=== PATIENT | female | born 1950 | race Caucasian/White ===

== ENCOUNTER 2017-03-04 10:08 | Emergency (ER) | payer OTHER ==
[~2017-03-04] VITALS: Ht 170.2 cm; Wt 56.7 kg
[2017-03-04] MEDS ORDERED: VENTOLIN HFA18 GM INH (10:26)
[2017-03-04] MEDS ORDERED: OMEPRAZOLE20 MG PO (10:26)
[2017-03-04] MEDS ORDERED: PROPRANOLOL HCL20 MG PO (10:27)
[2017-03-04] MEDS ORDERED: ADVAIR 250-501 EACH INH (10:28)
[2017-03-04] MEDS ORDERED: SPIRIVA18 MCG INH (10:29)
--- OUTSIDE RECORDS SUMMARY | 2017-03-04 10:32 | XMS ---
Demographics + + + | Address | [address] | | | [address] | | | [place] [id number] | + + + | Preferred Language | Unknown | + + + | Marital Status | Unknown | + + + | Latter-Day Affiliation | Unknown | + + + | Race | Unknown | + + + | Ethnic Group | Unknown | + + + Author + + + | Author | [facility] | + + + | Organization | [facility] | + + + | Address | [address] | | | [place] [address] | + + + | Phone | | + + + Care Team Providers + + + + | Care 7Th Grade Social Studies Teacher Name | Role | Phone | + + + + Unavailable | Unavailable | + + + + PROBLEMS +---------+ + + +--------+ + + | Type | Condition | ICD9-CM | [id number] | Onset | Condition | SNOMED | | | | Code | Code | Dates | Status | Code | +---------+ + + +--------+ + + | Problem | Essential | | I10 | | Active | [id number] | | | (primary) | | | | | | | | hypertensi | | | | | | | | on | | | | | | +---------+ + + +--------+ + + ALLERGIES + + + + +--------+ | Substance | Reaction | Event Type | Date | Status | + + + + +--------+ | Aspirin | Unknown | Drug Allergy | Nov, | Active | + + + + +--------+ SOCIAL HISTORY Never Assessed PLAN OF CARE + +---------+ | Activity | Details | + +---------+ +---+ | | +---+ + + + | Follow Up | 3 Months Reason:null | + + + | Pending Test | CT Scan: Lungs W/Out Contrast | + + + VITAL SIGNS + + + + | Height | 64 in | 2016-11-10 | + + + + | Weight | 123.0 lbs | 2016-11-10 | + + + + | BMI | 21.11 kg/m2 | 2016-11-10 | + + + + | Temperature | 98.6 degrees Fahrenheit | 2016-11-10 | + + + + | Heart Rate | 74 /min | 2016-11-10 | + + + + | Blood pressure systolic | 139 mm Hg | 2016-11-10 | + + + + | Blood pressure diastolic | 69 mm Hg | 2016-11-10 | + + + + MEDICATIONS + + + + + + + +--------+ | Medicati | Instruct | Dosage | Frequenc | Start | End Date | Duration | Status | | on | ions | | y | Date | | | | + + + + + + + +--------+ | Lisinopr | Orally | 1 tablet | 24h | | | | Active | | il 20 MG | Once a | | | | | | | | | day | | | | | | | + + + + + + + +--------+ | Omeprazo | Orally | 1 | 24h | | | 30 | Active | | le 20 MG | Once a | capsule | | | | | | | | day | | | | | | | + + + + + + + +--------+ | Ventolin | Inhalati | 2 puffs | 4h | | | 30 | Active | | HFA 108 | on every | as | | | | | | | (90 | 4 hrs | needed | | | | | | | Base) | | | | | | | | | MCG/ACT | | | | | | | | + + + + + + + +--------+ | Spiriva | Inhalati | i cap | | | | 30 | Active | | HandiHal | on q day | | | | | | | | er 18 | | | | | | | | | MCG | | | | | | | | + + + + + + + +--------+ | Hyzaar | Orally | 1 tablet | 24h | 30 Mar, | | 30 | Active | | 50-12.5 | Once a | | | 2017 | | day(s) | | | MG | day | | | | | | | + + + + + + + +--------+ RESULTS No Results PROCEDURES No Known procedures IMMUNIZATIONS No Known Immunizations MEDICAL (GENERAL) HISTORY + + +------+ | Type | Description | Date | + + +------+ | Surgical History | brain surgery | 1983 | + + +------+ | Surgical History | back surgery | | + + +------+"
[2017-03-04] MEDS ORDERED: PREDNISONE20 MG PO (11:47)
[2017-03-04] MEDS ORDERED: LEVAQUIN750 MG PO (11:47)
[2017-03-05] MEDS ORDERED: HYZAAR 50-12.51 EACH PO (00:01)
[2017-03-05] MEDS ORDERED: PREDNISONE20 MG PO (00:04)
--- NOTE | 2017-03-06 06:43 | EKG ---
[facility] [address] [place], [place] [address] Signed Sinus tachycardia Possible Anterolateral infarct , age undetermined Abnormal ECG No previous ECGs available Confirmed by ILDA CAMACHO MD ([id number]) on 03/06/2017 6:43:41 AM Electronically Signed By: ILDA CAMACHO MD 03/06/17 0643 PATIENT NAME: GORDO ROLLINS Electrocardiogram DATE OF : 54 PHYSICIAN: ILDA CAMACHO MD REPORT #: [id number] REPORT IS CONFIDENTIAL AND NOT TO BE RELEASED WITHOUT AUTHORIZATION
== END 2017-03-04 12:36 | disposition home or self-care (01) ==
LOC: ED 10:08
DX: J44.1 Chronic obstructive pulmonary disease with (acute) exacerbation (principal); Z88.2 Allergy status to sulfonamides; Z88.8 Allergy status to other drugs, medicaments and biological substances; Z79.899 Other long term (current) drug therapy
CPT/HCPCS: 71010; 80053; 83735; 84484; 85025; 87502; 93005; 93010; 94640; 96365; 96375; 99284; J1956; J2930; J7030

== ENCOUNTER 2017-03-04 23:48 | Inpatient (IN) | payer OTHER ==
[~2017-03-04] VITALS: Ht 170.2 cm; Wt 55.8 kg
[~2017-03-04 23:48] MED LIST: ADVAIR 250-501 EACH INH; LEVAQUIN750 MG PO; OMEPRAZOLE20 MG PO; PREDNISONE20 MG PO; PROPRANOLOL HCL20 MG PO; SPIRIVA18 MCG INH; VENTOLIN HFA18 GM INH
[2017-03-05] MEDS ORDERED: HYZAAR 50-12.51 EACH PO (00:01)
[2017-03-05] MEDS ORDERED: PREDNISONE20 MG PO (00:04)
--- NOTE | 2017-03-05 01:30 | NUR ---
PT ARRIVES TO ICU ROOM 130, UP TO BSC TO VOID THEN TO BED PER SELF, STEADY ON FEET. O2/2L/NC IN PLACE, HR 120'S WHILE UP. PT IS ALERT AND ORIENTED X4, C/O SOME NECK PAIN, STATES SHE FEELS "A LITTLE" SOB, "BUT IM GETTING BETTER". RR 20'S WHILE UP, SPO2 95%, SLIGHTLY LABORED WITH ACTIVITY. DAUGHTER IN ROOM, WILL STAY THE NIGHT.
--- NOTE | 2017-03-05 03:06 | NUR ---
PT RESTING IN BED, DOES NOT SEEM TO BE SLEEPING WELL, RR 24, SPO2 98% ON 2L/NC, RESP UNLABORED AT THIS TIME, HR 112. WAS GIVEN HER DOSE OF SOLUMEDROL AROUND 0145.
--- NOTE | 2017-03-05 04:16 | NUR ---
RT IN TO CHECK ON PT AND DO NEB TX. ASSESSMENT DONE, PT VERY TALKATIVE AND RESTLESS. LUNGS VERY DIM THROUGHOUT.
--- NOTE | 2017-03-05 05:30 | NUR ---
PT AWAKE IN BED, TRYING TO SLEEP, STATES HER SOB IS DECREASING ALTHOUGH BREATHING LOOKS LABORED, HR 115 AT REST. WEARING 2L/NC WITH SPO2 97% AND RR 24.
--- NOTE | 2017-03-05 07:07 | NUR ---
PT UP TO BSC THEN BACK TO BED.
--- NOTE | 2017-03-05 08:22 | NUR ---
ASSESSMENT COMPLETED, LUNGS DIM THROUGHOUT. PT SOB WITH SATS 84-88%. DR. LONGORIA IN TO ASSESS PT. PRN NEB TX GIVEN AND PT PLACED ON OXYMASK AT 3L THEN DECREASED TO 2L AND SATS NOW 96%.
--- NOTE | 2017-03-05 08:25 | NUR ---
PATIENT WHITEBOARD UPDATED, ROOM TIDIED. TOOK PATIENT TO BSC, 1PA. VOIDED 300ML. SATURATION WENT DOWN TO 85% WHILE ON 2L OM. NURSE NOTIFIED.
--- NOTE | 2017-03-05 09:17 | NUR ---
PATIENT CALLED BECAUSE SHE WAS COLD. TURNED HEAT UP IN ROOM. OFFERED TO COVER HER UP WITH BLANKET, SHE DECLINED. ALSO STATED SHE DID NOT LIKE YOGURT BECAUSE IT WAS SOUR, SHE WANTED TO KEEP TRAY IN ROOM. DECLINED ME ORDERING HER ANYTHING ELSE.
--- NOTE | 2017-03-05 09:26 | NUR ---
A.M. MEDS GIVEN AND PT ANXIOUS, STATES "I NEED SOMETHING TO BRING MED DOWN SO I CAN SLEEP". LIGHTS DIM IN ROOM AND PT REMAINS ON OXYMASK AT 2L, SATS 97%.
--- NOTE | 2017-03-05 09:43 | NUR ---
TOOK PATIENT TO BSC, SBA. VOIDED 600ML. DESAT TO 84% ON 2L OM (RN AND MD NOTIFIED).
--- NOTE | 2017-03-05 11:34 | NUR ---
PT UP TO BSC, VERY SOB, RETURNED TO BED WITH OXYMASK ON AND 02 INCREASED TO 4L, SATS 97%.
--- NOTE | 2017-03-05 12:58 | NUR ---
DAUGHTER HERE VISITING WITH PT. STATES "MY MOM SAYS HER STOMACH HURTS". CHECKED PT AND REMINDED HER SHE HAD PROTONX THIS MORNING. PT STATES FEELING NAUSEATED, MEDICATED WITH ZOFRAN 4MG IV. ASSESSMENT COMPLETED, SATS 97% ON 2L PER NC.
--- NOTE | 2017-03-05 13:17 | NUR ---
UP TO BSC WITH ONE PERSON ASSIST. VOIDED 450 MLS CLEAR YELLOW URINE. RETURNED TO BED WITH HOB ELEVATED. SATS 95% ON 2L PER NC.
--- NOTE | 2017-03-05 14:52 | NUR ---
GOT PATIENT UP TO BEDSIDE COMMODE. PATIENT VOIDED 400ML. PATIENT PERFORMED OWN [place] CARE. GOT PATIENT BACK TO BED. DESAT TO 78%, NURSE NOTIFIED.
--- NOTE | 2017-03-05 15:54 | NUR ---
RT IN AND TAUGHT PT TO US ACAYOCASTALLA. PT TRIPP WELL.
--- NOTE | 2017-03-05 16:02 | NUR ---
ASSESSMENT COMPLETED, STATES NECK DISCOMFORT "5/10". PT RESTING IN BED. WARM BLANKET GIVEN FOR NECK PAIN.
--- NOTE | 2017-03-05 18:33 | NUR ---
PT RESTING IN BED, WATCHING TV. EATING A CHEESE STICK. DENIES NEED FOR ANY OTHER FOOD AT THIS TIME.
--- NOTE | 2017-03-05 19:20 | NUR ---
UP TO BSC WITH ONE PERSON ASSIST. PT VOIDED 500 MLS CLEAR YELLOW URINE, RETURNED TO BED AND WARM BLANKET GIVEN PER PT REQUEST.
--- NOTE | 2017-03-05 19:30 | NUR ---
PT SHIFT REPORT RECIVED FROM NELI RN. ALL QUESTIONS ANSWERED. PT RESTING IN BED AT THIS TIME. PT USES CALL LIGHT. WILL CONTINUE TO MONITOR.
--- NOTE | 2017-03-05 20:15 | NUR ---
PT REQUESTING SOMETHING TO HELP HER SLEEP. CALLED MD TO UPDATE. MD WILL UPDATE PT MAY. NO OTHER ISSUES AT THIS TIME.
--- NOTE | 2017-03-05 21:47 | NUR ---
PT RESTING IN BED AT THIS TIME. BED ALARM ON FOR PT SAFETY. WILL CONTINUE TO MONITOR.
--- NOTE | 2017-03-05 23:00 | NUR ---
PT RESTING WELL AT THIS ITME. PT SPO2 98% ON 2L OXYMASK. PT RR 26-34. WILL CONTINUE TO CLOSELY MONITOR. NO OTHER ISSUES AT THIS TIME.
--- NOTE | 2017-03-06 01:15 | NUR ---
PT WOKE TO USE CAMMODE. PT TOLERATED WELL. GAVE PT NEB AFTER SHE WAS BACK TO BED. PT BREATH SOUNDS REMAIN DIMINISHED. WILL CONTINUE TO CLOSELY MONITOR. HR IMPROVED WHEN PT IS RESTING TO 94-100. WHEN PT IS AWAKE HR IS 105-120.
--- NOTE | 2017-03-06 03:00 | NUR ---
PT RESTING WELL AT THIS TIME. BED ALARM ON FOR PATIENT SAFETY. PT HAS CALLED FOR ASSITANCE NEEDED. PT HR 80-95 WHILE ASLEEP. WHEN PT AWAKENS HR 105-120. PT RR HAS IMPROVED WITH RATE 22-26 WHILE AT REST. PT CONTINUES TO WEAR OXYMASK AT 2L AND INCREASED TO 4L WITH AMBULATION. WILL CONTINUE TO MONITOR.
--- NOTE | 2017-03-06 06:00 | NUR ---
PT UP TO CAMMODE. PT DESATS WITH ACTIVITY. TURN OXYMASK UP TO 4L TO HELP PREVENT DESATING. RT IN TO SEE PT WHILE PT IS AWAKE. NEB GIVEN D/T PT BEING ASLEEP EARLIER. NO OTHER ISSUES AT THIS TIME. WILL CONTINUE TO MONITOR.
--- NOTE | 2017-03-06 07:54 | NUR ---
PT WAS OFFERED A SHOWER/BED BATH, WARM WASH CLOTH, AND ORAL CARE. PT REFUSED ALL. WILL NOTIFY RN. PT IS BACK IN BED. COMMODE EMPTIED. FRESH ICE WATER AND WARM BLANKET GIVEN. CALL LIGHT IN REACH.
--- NOTE | 2017-03-06 08:23 | NUR ---
PT UP TO BSC WITH ONE PERSON ASSIST - PT HAD SMALL SOFT BROWN BM AND TRANSFERRED TO ADONIS CHAIR USING WALKER AND ONE PERSON ASSIST. ASSESSMENT COMPLETED - DENIES DISCOMFORT AT THIS TIME BUT STATES "I'M TIRED TODAY".
--- NOTE | 2017-03-06 08:39 | NUR ---
PT'S O2 SATS WENT DOWN TO 77. RAISED O2 VIA OXYMASK FOR TWO MINUTES AND TURNED IT BACK DOWN TO 3L ONCE O2 LEVELS WERE BACK UP. RN NOTIFIED.
--- NOTE | 2017-03-06 09:54 | NUR ---
PT AWAKE AND UP WITH ONE PERSON ASSIST. PHYSICAL THERAPY HERE AND AMBULATED IN HALLWAY ON 02. PT TRIPP WELL WITH SOME SHORTNESS OF BREATH BUT PT WAS ABLE TO RECOVER. SATS 94% ON 2L PER NC. ASSESSMENT COMPLETED, LUNGS DIM WITH FEW WHEEZES IN LEFT LOWER BASE. REPORT GIVEN TO BENTON Chavira ON MED/SURG.
--- NOTE | 2017-03-06 10:36 | NUR ---
PATIENT JUST CAME OVER FROM CCU.
--- NOTE | 2017-03-06 15:38 | NUR ---
AROLDOEINT IS IN BED, SHE REQUESTED A REFILL ON WATER, SHE SAID SHE HAD A HEADACH BUT THAT IT SUBSIDED
--- NOTE | 2017-03-06 15:40 | NUR ---
PT RESTING IN BED WITH LIGHTS OFF, EYES OPEN. PT STATES SHE HAS VERY SENSITIVE EYES AND DOES NOT LIKE THE LIGHTS ON. PT AMBULATES TO THE TOILET, VOIDS WELL. CHANGES TO NASAL CANULA WITH LONG TUBING FOR AMBULATION. OXYMASK WHEN IN BED. PT LOOKING AT PICTURES ON PHONE.
--- NOTE | 2017-03-06 17:00 | NUR ---
Medications reconciled through patient & her daughter interview
--- NOTE | 2017-03-06 18:31 | NUR ---
PT TRANSFERED TO FLOOR FROM THE UNIT. PT AMBULATES TO BATHROOM WITH O2 AT 3L NC, O2 AT 2-3L WHILE IN BED VIA OXYMASK. PT VOIDING WELL. NO BM THIS SHIFT. ENCOURAGE PO INTAKE, PT DRINKS WATER, DOES NOT EAT MUCH. HX TBI, COPD, GERD.
--- NOTE | 2017-03-06 19:24 | NUR ---
RECIEVED REPORT FROM DAY SHIFT NURSE. PATIENT UP TO BATHROOM WITH MECHANICAL PIPING DESIGNER. DENIES NEEDS AT THIS TIME. CALL AARON IN REACH.
--- NOTE | 2017-03-06 19:28 | NUR ---
HELPED PT BACK TO BED WITH HER WALKER. PUT O MASK BACK ON. BEDSIDE TABLE AND CALL LIGHT WITHIN REACH.
--- NOTE | 2017-03-06 20:56 | NUR ---
VITALS AND I&OS DONE. PT REQUESTED SOME CHICKEN NOODLE SOUP. GIVEN TO HER. PT NEEDS NOTHING ELSE AT THIS TIME WHEN ASKED. BEDSIDE TABLE AND CALL LIGHT WITHIN REACH.
--- NOTE | 2017-03-06 21:06 | NUR ---
PATIENT RESTING IN BED. OXYMASK IN PLACE AT 3L/MIN. PATIENT DENIES PAIN AND SOB. VS OBTAINED BY INVENTORY CONTROL ANALYST. DRY COUGH NOTED. PATIENT'S LUNG SOUNDS EXP WHEEZE IN UPPER LOBES, EXP AND INSPIRATORY WHEEZES HEARD IN LOWER LOBES. SOLUDEMROL ADMINISTERED. HR TACHY, TELE IN PLACE SHOWING SINUS TACHYCARDIA. NO EDEMA NOTED. PATIENT DENIES NEEDS. CALL LIGHT IN REACH.
--- NOTE | 2017-03-06 21:55 | NUR ---
PATIENT SLEEPING ON L SIDE. OXYMASK IN PLACE. CALL LIGHT IN REACH.
--- NOTE | 2017-03-06 23:16 | NUR ---
PATIENT SLEEPING. OXYMASK IN PLACE. CALL LIGHT IN REACH.
--- NOTE | 2017-03-07 01:22 | NUR ---
PATIENT SLEEPING. OXYMASK IN PLACE. CALL LIGHT IN REACH.
--- NOTE | 2017-03-07 02:08 | NUR ---
VITALS AND I&OS DONE. HELPED PT UP TO THE BATHROOM WITH HER WALKER AND BACK TO BED. CALL LIGHT AND BEDSIDE TABLE WITHIN REACH. PT NEEDED NOTHING MORE AT THAT TIME, WHEN I ASKED.
--- NOTE | 2017-03-07 02:23 | NUR ---
PATIENT SITTING UPRIGHT IN BED COUGHING. COUGH IS NON-PRODUCTIVE. SWITCHED FROM OXYMASK TO NASAL CANNULA. PATIENT IS ON 3L/MIN O2. LUNGS ARE DIMINISHED THROUGHOUT, NO WHEEZES HEARD. PATIENT DENIES NEED FOR NEB TX AT THIS TIME. HR TACHY AT 100. TELE #7 SHOWING SINUS TACHYCARDIA. BOWEL TONES ACTIVE. NO EDEMA. PATIENT DENIES PAIN. MANAGER SOFTWARE ASSISTED PATIENT TO BATHROOM. PATIENT DENIES NEEDS, CALL LIGHT IN REACH.
--- NOTE | 2017-03-07 03:56 | NUR ---
PATIENT SLEEPING ON L SIDE. ABLE TO REPOSITION HERSELF. NASAL CANNULA IN PLACE. CALL LIGHT IN REACH.
--- NOTE | 2017-03-07 04:46 | NUR ---
PATIENT SLEEPING. TITRATED O2 DOWN TO 2L/MIN. O2 AT 3L WAS 100%, WILL RECHECK. CALL LIGHT IN REACH.
--- NOTE | 2017-03-07 04:51 | NUR ---
UNEVENTFUL NIGHT. SLEPT MOST OF THE NIGHT. TITRATED O2 DOWN TO 2L/MIN.
--- NOTE | 2017-03-07 05:49 | NUR ---
VITALS AND I&OS DONE. PT IS RESTING AND NEEDS NOTHING AT THIS TIME. BEDSIDE TABLE AND CALL LIGHT IN REACH.
--- NOTE | 2017-03-07 07:14 | NUR ---
RECIEVED BEDSIDE REPORT FROM OBDULIA MCFARLAND. PT AWAKE AND ALERT, RESTING IN BED. O2 IN PLACE AT 2L. NO IV RUNNING. PT REPORTS NO PAIN AT THIS TIME. ALL BELONGINGS IN REACH.
--- NOTE | 2017-03-07 08:06 | NUR ---
PATIENT DIDN'T WANT ANY BREAKFAST YET.
--- NOTE | 2017-03-07 09:07 | NUR ---
PT RESTING COMFORTABLY. REQUESTED RN ORDER HER BREAKFAST, WHICH WAS DONE. PT STATES SHE IS FEELING BETTER, JUST TIRED. ALL PERSONAL BELONGINGS ARE WITHIN REACH. PT STATES SHE WILL CALL WHEN SHE NEEDS TO USE THE RESTROOM.
--- NOTE | 2017-03-07 17:55 | NUR ---
PT REPORTS EPIGASTRIC/SUBSTERNAL PAIN. PT REPORTS SHE HAS PREVIOUSLY HAD A IRREGULAR HEARTBEAT. CALLED DR CAMACHO, ADVISED GIVE TYLENOL AND CALL HER BACK.
--- NOTE | 2017-03-07 18:41 | NUR ---
PT REPORTS UPPER GASTRIC/SUBSTERNAL PAIN. REPORTS SHE HAS HAD THIS PREVIOUSLY. STATES IT STARTED AFTER EATING DINNER, SHE HAS HAD THIS HAPPEN BEFORE AND CUT FOODS OUT OF HER DIET. MD AWARE, GAVE TYLENOL, ADVISED TO CALL AGAIN IF THAT DID NOT WORK. PT WORKED WITH PT, TOLERATES WELL. EATING MUCH BETTER.
--- NOTE | 2017-03-07 19:23 | NUR ---
RECIEVED REPORT FROM DAY SHIFT NURSE. PATIENT SITTING UPRIGHT IN BED. NASAL CANNULA IN PLACE. PATIENT DENIES NEEDS. CALL LIGHT IN REACH.
--- NOTE | 2017-03-07 19:46 | NUR ---
PATIENT RESTING IN BED. NASAL CANNULA IN PLACE AT 2L/MIN. RESPIRATORY THERAPY IN TO ADMINISTER NEB TX. NO COUGH NOTED. LUNGS CLEAR->DIM, INSPIRATORY WHEEZE HEARD IN RLL. HR REGULAR. TELE READING NSR. NO EDEMA. ACTIVE BS. PATIENT DENIES PAIN AT THIS TIME. REFILLED WATER PITCHER. PATIENT DENIES NEEDS. CALL LIGHT IN REACH.
--- NOTE | 2017-03-07 19:55 | NUR ---
SPOKE WITH DR. CAMACHO ABOUT IV SITE CARE. SAID I COULD REMOVE FIELD START IV WITHOUT REPLACING. NO IV ACCESS AT THIS TIME.
--- NOTE | 2017-03-07 21:06 | NUR ---
OBDULIA MCFARLAND NOTIFIED RE BP.
--- NOTE | 2017-03-07 21:34 | NUR ---
APPLIANCE SERVICE SUPERVISOR WAS IN ROOM AND FOUND PATIENT WITH A BOTTLE OF BP MEDS. APPLIANCE SERVICE SUPERVISOR OBTAINED MEDICATION BOTTLE AND GAVE TO ME. I HAD A CONVERSATION THE IMPORTANCE OF NOT TAKING HOME MEDICATION WHILE IN THE HOSPITAL AND THAT THE NURSE WILL ADMINISTER ALL THE MEDICATION. PATIENT VERBALIZED UNDERSTANDING. DENIES NEEDS. CALL LIGHT IN REACH. MEDICATION BOTTLE PLACED IN TOWER UNDER KITS LIST.
--- NOTE | 2017-03-07 22:33 | NUR ---
PATIENT SHOWED ME HER 3 BOTTLES OF MEDICATIONS FROM HER PURSE, STATED SHE NEEDS TO TAKE ONE FOR HER BLOOD PRESSURE. I TOLD HER THAT THOSE MEDS SHOULD BE HANDED TO NURSE AND THE NURSE WILL BE RESPONSIBLE TO GIVE TO PATIENT. NURSE NOTIFIED.
--- NOTE | 2017-03-07 23:13 | NUR ---
PATIENT SLEEPING. CHANGED TELE BATTERIES. CALL LIGHT IN REACH.
--- NOTE | 2017-03-08 00:25 | NUR ---
PATIENT SLEEPING. NASAL CANNULA IN PLACE. CALL LIGHT IN REACH.
--- NOTE | 2017-03-08 02:30 | NUR ---
PATIENT SLEEPING ON L SIDE. NASAL CANNULA IN PLACE AT 2L/MIN. CALL LIGHT IN REACH.
--- NOTE | 2017-03-08 03:11 | NUR ---
ASSISTED PATIENT TO BATHROOM. VOIDED. BACK TO BED. LUNGS DIMINISHED, HR REGULAR-TELE READING NSR AT 89 BPM. BS ACTIVE. NO EDEMA. DRY COUGH. PATIENT DENIES PAIN. REFILLED WATER PITCHER. CALL LIGHT IN REACH.
--- NOTE | 2017-03-08 04:32 | NUR ---
PATIENT SLEEPING ON L SIDE. NASAL CANNULA IN PLACE. CALL LIGHT IN REACH.
--- NOTE | 2017-03-08 06:39 | NUR ---
PATIENT SLEEPING. NASAL CANNULA IN PLACE. CALL LIGHT IN REACH.
--- NOTE | 2017-03-08 07:35 | NUR ---
REPORT RECIEVED FROM OBDULIA MCFARLAND. PT AWAKE AND PARTICIPATED IN REPORT.
--- NOTE | 2017-03-08 08:20 | NUR ---
STAND BY ASSIST PATIENT FROM BATHROOM TO BED. PATIENT HAS NO NEEDS AT THIS TIME.
--- NOTE | 2017-03-08 08:21 | NUR ---
PT SITTING UP IN BED AFTER BEING AWOKEN FOR MORNING MEDS. PT STATES SHE IS ANXIOUS ABOUT GOING HOME SHE HOPES TO DO WELL AT HOME. HAS MOVED UP FROM THE BASEMENT TO THE MAIN FLOOR. STATES STAIRS DOES HER IN.
--- NOTE | 2017-03-08 09:40 | NUR ---
DISCUSSED WITH PT THE OPTIONS FOR GETTING HER HOME O2, WE TALKED ABOUT IN HOME MED, [facility], AND [facility]. PT STATED SHE WANTED IN HOME MED.
--- NOTE | 2017-03-08 10:03 | NUR ---
PATIENT SITTING UP IN BED WATCHING TV. PATIENT REFUSED SHOWER. WOULD LIKE TO SHOWER AT HOME. HANDS AND FACE WASHED.
[2017-03-08] MEDS ORDERED: PREDNISONE10 MG PO (10:36)
--- NOTE | 2017-03-08 11:20 | NUR ---
pharmacy into see patient.
--- NOTE | 2017-03-08 12:00 | NUR ---
FAXED CHART NOTES TO [facility] HOME [facility] FOR A FOUR WHEELED WALKER AND O2 SET UP AT HOME, THESE INCLUDEDFACESHEET, ORDERS X 2, O2 HOME QUALIFIER, ER NOTES, H AND P, PROG NOTES, PT EVAL AND NOTES. TO THEM. SPOKE WITH JOSSELYN AFTER THAT AND SHE SAID SHE WOULD START PROCESSING IT.
--- NOTE | 2017-03-08 12:56 | NUR ---
PT UP TO RESTROOM AFTER DOING NEB TREATMENT FOR RT. PT AMBULATED TO RESTROOM WITH FWW ON OWN. REMAINS ON O2.
--- NOTE | 2017-03-08 13:13 | NUR ---
PT RECENTLY MOVED FROM [facility]-HAVING TROUBLE ADJUSTING TO [place]. PT SEEMED ALERT AND ORIENTED. PT MENTIONED THAT HER POSITIVE NEW YEAR DEPENDED ON THE GOV'T. SEEMS TO BE RATHER NEGATIVE BY NATURE, SHE DIDN'T SEEM TOO EXCITED FOR DC, BUT DID ADMIT THAT SHE IS FEELING BETTER THAN WHEN SHE CAME. EXTENDED A BLESSING TO HER AND THEN SHE HAD SOME QUESTIONS OF [employer]ARDINJG ANIMALS, PLANTS ETC. WE DISCUSSED, SHE SEEMED SATISFIED WITH MY ANSWERS
--- NOTE | 2017-03-08 13:15 | NUR ---
CALLED TO CHECK ON WHERE WE WERE WITH THIS ORDER THE PT IS WAITING TO GO HOME. THEY SAID THEY WERE STILL WAITING FOR [facility] TO RESPOND.
--- NOTE | 2017-03-08 15:25 | NUR ---
PT EDUCATION GIVEN. PT VERBALIZED UNDERSTANDING. DISCUSSED SIDE EFFECTS OF MEDICATIONS AND ANSWERED ALL QUESTIONS. IV REMOVED PREVIOUSLY SITE WNL. WALKER AND O2 DELIVERED. VS STABLE.
== END 2017-03-08 15:40 | disposition home or self-care (01) | DRG 190 ==
LOC: ED 23:48 → CCU 03-05 01:09 → MS 03-06 10:05
PROVIDERS: ADMIT Internal Medicine
DX: J44.1 Chronic obstructive pulmonary disease with (acute) exacerbation (principal); J96.01 Acute respiratory failure with hypoxia; I10 Essential (primary) hypertension; K21.9 Gastro-esophageal reflux disease without esophagitis; Z87.891 Personal history of nicotine dependence; Z87.820 Personal history of traumatic brain injury
CPT/HCPCS: 36415; 36600; 80053; 82803; 83735; 83880; 85025; 94640; 94667; 94668; 94760; 94761; 96374; 97110; 97162; 99285; G8978; G8979; J1650; J1885; J2405; J2920; J2930; J7120; J7512

== ENCOUNTER 2017-04-06 16:42 | Inpatient (IN) | payer OTHER ==
[~2017-04-06] VITALS: Ht 170.2 cm; Wt 48.5 kg
[~2017-04-06 16:42] MED LIST changes: +HYZAAR 50-12.51 EACH PO; +PREDNISONE10 MG PO
[2017-04-06] MEDS ORDERED: ULTRAM50 MG PO (16:52)
[2017-04-06] MEDS ORDERED: KEFLEX500 MG PO (16:52)
[2017-04-07] MEDS ORDERED: PEPTO-BISM262 MG/15 PO (16:56)
[2017-04-07] MEDS ORDERED: ADVIL200 MG PO (16:57)
[2017-04-08] MEDS ORDERED: PREDNISONE10 MG PO (08:06)
[2017-04-08] MEDS ORDERED: CLINDAMYCIN HC300 MG PO (08:06)
[2017-04-08] MEDS ORDERED: MELATONIN3 MG PO (08:49)
== END 2017-04-08 10:58 | disposition home or self-care (01) | DRG 159 ==
LOC: ED 16:42 → MS 16:43
PROVIDERS: ADMIT Internal Medicine
DX: K12.2 Cellulitis and abscess of mouth (principal); J44.9 Chronic obstructive pulmonary disease, unspecified; Z87.820 Personal history of traumatic brain injury
CPT/HCPCS: 36415; 70491; 80048; 80053; 83605; 85025; 94640; 94762; 96365; 96375; 99285; J1170; J2920; J7030; J7120; J7512; Q9967

== ENCOUNTER 2017-06-11 04:08 | Emergency (ER) | payer OTHER ==
[~2017-06-11] VITALS: Ht 170.2 cm; Wt 55.8 kg
[~2017-06-11 04:08] MED LIST changes: +ADVIL200 MG PO; +CLINDAMYCIN HC300 MG PO; +KEFLEX500 MG PO; +MELATONIN3 MG PO; +PEPTO-BISM262 MG/15 PO; +ULTRAM50 MG PO
[2017-06-11] MEDS ORDERED: PREDNISONE20 MG PO (05:11)
== END 2017-06-11 05:26 | disposition home or self-care (01) ==
LOC: ED 04:08
DX: J44.0 Chronic obstructive pulmonary disease with (acute) lower respiratory infection (principal); J20.9 Acute bronchitis, unspecified; Z87.891 Personal history of nicotine dependence; Z88.2 Allergy status to sulfonamides; Z88.6 Allergy status to analgesic agent; Z79.899 Other long term (current) drug therapy
CPT/HCPCS: 71046; 94640; 96374; 99283; J2930

== ENCOUNTER 2017-08-02 18:52 | Emergency (ER) | payer OTHER ==
[~2017-08-02] VITALS: Ht 170.2 cm; Wt 57.1 kg
== END 2017-08-02 20:59 | disposition home or self-care (01) ==
LOC: ED 18:52
DX: R19.7 Diarrhea, unspecified (principal); J44.9 Chronic obstructive pulmonary disease, unspecified; Z87.891 Personal history of nicotine dependence; Z88.2 Allergy status to sulfonamides; Z88.6 Allergy status to analgesic agent; Z79.899 Other long term (current) drug therapy
CPT/HCPCS: 80053; 81001; 82150; 83690; 85025; 96361; 96374; 99283; J7030

== ENCOUNTER 2017-08-06 00:43 | Emergency (ER) | payer OTHER ==
[~2017-08-06] VITALS: Ht 170.2 cm; Wt 57.1 kg
== END 2017-08-06 01:31 | disposition home or self-care (01) ==
LOC: ED 00:43
DX: J44.1 Chronic obstructive pulmonary disease with (acute) exacerbation (principal); Z79.899 Other long term (current) drug therapy
CPT/HCPCS: 71046; 99283

== ENCOUNTER 2017-09-24 21:19 | Emergency (ER) | payer OTHER ==
[~2017-09-24] VITALS: Ht 170.2 cm; Wt 57.1 kg
[2017-09-24] MEDS ORDERED: IPRAT-ALBUT 0.5-3 ML INH (21:35)
[2017-09-24] MEDS ORDERED: PROBIOTIC1 EAC2 PO (21:37)
[2017-09-25] MEDS ORDERED: PREDNISONE20 MG PO (01:26)
--- NOTE | 2017-09-25 09:02 | EKG ---
[facility] [address] [place] [address] Signed Normal sinus rhythm Biatrial enlargement Abnormal ECG When compared with ECG of 04-MAR-2017 10:16, Borderline criteria for Anterior infarct are no longer present Borderline criteria for Anterolateral infarct are no longer present T wave inversion no longer evident in Inferior leads T wave inversion now evident in Anterior leads Confirmed by JOHN LONGORIA MD ([id number]) on 09/25/2017 9:02:14 AM Electronically Signed By: JOHN LONGORIA MD 09/25/17 0902 PATIENT NAME: GORDO ROLLINS Electrocardiogram DATE OF : 54 PHYSICIAN: JOHN LONGORIA MD REPORT #: [id number] REPORT IS CONFIDENTIAL AND NOT TO BE RELEASED WITHOUT AUTHORIZATION
== END 2017-09-25 01:45 | disposition home or self-care (01) ==
LOC: ED 21:19
DX: J44.9 Chronic obstructive pulmonary disease, unspecified (principal); J45.901 Unspecified asthma with (acute) exacerbation; J20.9 Acute bronchitis, unspecified; Z87.891 Personal history of nicotine dependence; Z88.2 Allergy status to sulfonamides; Z88.8 Allergy status to other drugs, medicaments and biological substances; Z79.899 Other long term (current) drug therapy
CPT/HCPCS: 71045; 80053; 83735; 84484; 85025; 93005; 93010; 96374; 99285; J2930

== ENCOUNTER 2018-10-30 14:26 | Emergency (ER) | payer MEDICARE, OTHER ==
[~2018-10-30] VITALS: Ht 170.2 cm; Wt 52.2 kg
[~2018-10-30 14:26] MED LIST changes: +CEFPODOXIME PR200 MG PO; +IPRAT-ALBUT 0.5-3 ML INH; +LEVOFLOXACIN500 MG PO; +MELATONIN5 M2 PO; +PROBIOTIC1 EAC2 PO
--- OUTSIDE RECORDS SUMMARY | 2018-10-30 15:16 | XMS ---
PreManage Notification: GORDO ROLLINS Security Hat [employer]ovator Events No recent Security Events currently on file CRITERIA MET - Group Notification - [facility] CARE PROVIDERS SAUL HARDY Family Medicine 01/31/2018-Current PHONE: [phone] ALIX OLSEN Health Educator 09/14/2018-Current PHONE: [phone] HUNTER HEREDIA Physician Patients Transporter 11/09/2017-Current PHONE: [phone] TREY MAHONEY Internal Medicine 12/21/2017-Current PHONE: Unknown JORGE DICK [facility] 02/22/2018-Current PHONE: [phone] Anali Alvarez Accountant Manager/Admitting Office Escort 04/07/2018-Current PHONE: [phone] Anali Alvarez Primary Care 04/07/2018-Current PHONE: [phone] MALISSA MORENO Primary Care Current PHONE: Unknown Trey Mahoney Primary Care Current PHONE: [phone] Kathy has no Care Guidelines for this patient. Care History Medical/Surgical 02/22/2018 [facility] - PATIENT HAS NOW ESTABLISHED CARE WITH DR DICK- - Patient is currently established with [facility]. If patient is seen in the ED during business hours. Please contact CHWs at [facility]. - Care Recommendation: This patient has had 5 or more Emergency Department visits in the last 12 months.\T\nbsp; Patient requires education on the scope and purpose of the ED as an acute care provider not a Primary Care Provider and should not be utilized for chronic conditions.\T\nbsp; These are guidelines and the provider should exercise clinical judgment when providing care. 01/31/2018 [facility] - PATIENT HAS STATED SHE SEES DR HARDY IN [place] HER PCP- PATIENT HAS ONLY BEEN SEEN ONCE BY DR HARDY OFFICE ON 12/28/17 AND DOES NOT HAVE ANY FUTURE APTS. - PATIENT DAUGHTER THERESA IS PATIENT CAREGIVER- PATIENT DAUGHTER HAS DECLINED SERVICES FOR HER MOM TO ATTEND THE PULMONARY REHAB PROGRAM. - CHW WILL CONTACT [facility] TO SEE IF PATIENT CAN RECEIVE RESPIRATORY SERVICES IN THE HOME IF POSSIBLE. 11/02/2017 [facility] HISTORY:\T\nbsp;\T\nbsp; COPD/ TBI/ PROPANE EXPLOSION E.D. VISIT COUNT (12 MO.) 2 [facility] TOTAL 2 NOTE: Visits indicate total known visits. 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 - Other half-way (current) drug therapy - Chronic respiratory failure with hypoxia - Essential (primary) hypertension - Sepsis, unspecified organism - Gastro-esophageal reflux disease without esophagitis - Personal history of nicotine dependence - Allergy status to other drugs, medicaments and biological substances status - Gram-negative sepsis, unspecified - Dependence on supplemental oxygen - Personal history of traumatic brain injury - Pneumonia due to other Gram-negative bacteria - Allergy status to sulfonamides status - Chronic obstructive pulmonary disease with acute lower respiratory infection [email or web address]
[2018-10-30] MEDS ORDERED: ZITHROMAX250 MG PO (18:52)
--- NOTE | 2018-10-31 15:37 | EKG ---
[facility] [address] [place], [place] [address] Signed Normal sinus rhythm Normal ECG When compared with ECG of 28-JAN-2018 18:41, No significant change was found Confirmed by JOHN LONGORIA MD ([id number]) on 10/31/2018 3:37:00 PM Electronically Signed By: JOHN LONGORIA MD 10/31/18 1537 PATIENT NAME: GORDO ROLLINS Electrocardiogram DATE OF : 54 PHYSICIAN: JOHN LONGORIA MD REPORT #: [id number] REPORT IS CONFIDENTIAL AND NOT TO BE RELEASED WITHOUT AUTHORIZATION
== END 2018-10-30 19:18 | disposition home or self-care (01) ==
LOC: ED 14:26
DX: J44.1 Chronic obstructive pulmonary disease with (acute) exacerbation (principal); E87.6 Hypokalemia; Z87.891 Personal history of nicotine dependence; Z88.2 Allergy status to sulfonamides; Z88.6 Allergy status to analgesic agent; Z79.899 Other long term (current) drug therapy
CPT/HCPCS: 80053; 81001; 83735; 84484; 85025; 93005; 93010; 96361; 96374; 99285-25; J1100; J7120

== ENCOUNTER 2018-11-06 21:04 | Emergency (ER) | payer MEDICARE, OTHER ==
[~2018-11-06] VITALS: Ht 170.2 cm; Wt 52.2 kg
[~2018-11-06 21:04] MED LIST changes: +ZITHROMAX250 MG PO
--- OUTSIDE RECORDS SUMMARY | 2018-11-06 21:06 | XMS ---
PreManage Notification: GORDO ROLLINS Security Stripe Matcher Events No recent Security Events currently on file CRITERIA MET - Group Notification - [facility] - Has Care Guidelines - [facility] - 2 Visits in 30 Days CARE PROVIDERS SAUL HARDY Family Medicine 01/31/2018-Current PHONE: [phone] ALIX OLSEN Health Educator 09/14/2018-Current PHONE: [phone] HUNTER HEREDIA Physician Gas Distribution Supervisor 11/09/2017-Current PHONE: [phone] TREY MAHONEY Internal Medicine 12/21/2017-Current PHONE: Unknown JORGE DICK [facility] 10/31/2018-Current PHONE: [phone] Anali Alvarez Non Morse Intercept Technician/Service Manager 04/07/2018-Current PHONE: [phone] Anali lAvarez Primary Care 04/07/2018-Current PHONE: [phone] MALISSA MORENO Primary Care Current PHONE: Unknown Trey Mahoney Primary Care Current PHONE: [phone] Kathy has no Care Guidelines for this patient. Care History Medical/Surgical 02/22/2018 [facility] - PATIENT HAS NOW ESTABLISHED CARE WITH DR DICK- - Patient is currently established with [facility]. If patient is seen in the ED during business hours. Please contact CHWs at [facility]. - Care Recommendation: This patient has had 5 or more Emergency Department visits in the last 12 months.\T\nbsp; Patient requires education on the scope and purpose of the ED as an acute care provider not a Primary Care Provider and should not be utilized for chronic conditions.\T\nbsp; These are guidelines and the provider should exercise clinical judgment when providing care. 01/31/2018 [facility] - PATIENT HAS STATED SHE SEES DR HARDY IN [place] HER PCP- PATIENT HAS ONLY BEEN SEEN ONCE BY DR HARDY OFFICE ON 12/28/17 AND DOES NOT HAVE ANY FUTURE APTS. - PATIENT DAUGHTER THERESA IS PATIENT CAREGIVER- PATIENT DAUGHTER HAS DECLINED SERVICES FOR HER MOM TO ATTEND THE PULMONARY REHAB PROGRAM. - CHW WILL CONTACT LESLYE DockeryRESPIRATORY AT [facility] TO SEE IF PATIENT CAN RECEIVE RESPIRATORY SERVICES IN THE HOME IF POSSIBLE. 11/02/2017 [facility] HISTORY:\T\nbsp;\T\nbsp; COPD/ TBI/ PROPANE EXPLOSION E.D. VISIT COUNT (12 MO.) [address] [facility] TOTAL 3 NOTE: Visits indicate total known visits. ED/UCC VISIT TRACKING (12 MO.) 11/06/2018 21:05 [facility] [place] TYPE: Emergency COMPLAINT: - HOT FLASHES 10/30/2018 14:26 [facility] [place] TYPE: Emergency COMPLAINT: - WEAKNESS DIAGNOSES: - Allergy status to analgesic agent status - Other mcfp (current) drug therapy - Chronic obstructive pulmonary disease with (acute) exacerbation - Personal history of nicotine dependence - Weakness - Hypokalemia - Allergy status to sulfonamides status 01/28/2018 17:48 [facility] [place] TYPE: Emergency COMPLAINT: - FEVER INPATIENT VISIT TRACKING (12 MO.) 01/28/2018 19:48 [facility] [place] TYPE: Medical Surgical COMPLAINT: - SEPSIS-PNEUMONIA DIAGNOSES: - exterminator helper termite (current) use of inhaled steroids - Other termite inspector (current) drug therapy - Chronic respiratory failure [...] pulmonary disease with acute lower respiratory infection [email or web address]
[2018-11-06] MEDS ORDERED: PAROXETINE HCL20 MG PO (23:49)
== END 2018-11-07 00:08 | disposition home or self-care (01) ==
LOC: ED 21:04
DX: N95.1 Menopausal and female climacteric states (principal); J44.9 Chronic obstructive pulmonary disease, unspecified; Z87.891 Personal history of nicotine dependence; Z88.2 Allergy status to sulfonamides; Z88.6 Allergy status to analgesic agent; Z79.899 Other long term (current) drug therapy
CPT/HCPCS: 80048; 81001; 85025; 99283

== ENCOUNTER 2019-03-01 17:15 | Observation (INO) | payer MEDICARE, OTHER ==
[~2019-03-01] VITALS: Ht 170.2 cm; Wt 51.7 kg
[~2019-03-01 17:15] MED LIST changes: +MELATONIN1 MG PO; -MELATONIN5 M2 PO; +PAROXETINE HCL20 MG PO
--- OUTSIDE RECORDS SUMMARY | 2019-03-01 17:18 | XMS ---
PreManage Notification: GORDO ROLLINS Security Solar Installer Pv Events No recent Security Events currently on file CRITERIA MET - Group Notification - [facility] CARE PROVIDERS SAUL HARDY Family Medicine 01/31/2018-Current PHONE: [phone] ALIX OLSEN Health Educator 09/14/2018-Current PHONE: [phone] HUNTER HEREDIA Physician Client Coordinator 11/09/2017-Current PHONE: [phone] TREY MAHONEY Internal Medicine 12/21/2017-Current PHONE: Unknown JORGE DICK [facility] 10/31/2018-Current PHONE: [phone] Anali Alvarez Hospital Carrier/Hide Curer 10/05/2018-Current PHONE: [phone] Anali Alvarez Primary Care 10/05/2018-Current PHONE: [phone] MALISSA MORENO Primary Care Current PHONE: Unknown Trey Mahoney Primary Care Current PHONE: [phone] Kathy has no Care Guidelines for this patient. Care History Medical/Surgical 02/22/2018 [facility] - PATIENT HAS NOW ESTABLISHED CARE WITH DR DICK- - Patient is currently established with [facility]. If patient is seen in the ED during business hours. Please contact CHWs at [facility]. - Care Recommendation: This patient has [...] HAS STATED SHE SEES DR HARDY IN [place] HER PCP- PATIENT HAS ONLY BEEN SEEN ONCE BY DR HARDY OFFICE ON 12/28/17 AND DOES NOT HAVE ANY FUTURE APTS. - PATIENT DAUGHTER THERESA IS PATIENT CAREGIVER- PATIENT DAUGHTER HAS DECLINED SERVICES FOR HER MOM TO ATTEND THE PULMONARY REHAB PROGRAM. - CHW WILL CONTACT LESLYE DockeryRESPIRATORY AT [facility] TO SEE IF PATIENT CAN RECEIVE RESPIRATORY SERVICES IN THE HOME IF POSSIBLE. 11/02/2017 [facility] HISTORY:\T\nbsp;\T\nbsp; COPD/ TBI/ PROPANE EXPLOSION E.D. VISIT COUNT (12 MO.) 3 [facility] TOTAL 3 NOTE: Visits indicate total known visits. ED/UCC VISIT TRACKING (12 MO.) 03/01/2019 17:17 [facility] [place] TYPE: Emergency COMPLAINT: - POSSIBLE PNEUMONIA 11/06/2018 21:05 [facility] [place] TYPE: Emergency COMPLAINT: - HOT FLASHES DIAGNOSES: - Allergy status to analgesic agent status - Chronic obstructive pulmonary disease, unspecified - Menopausal and female climacteric states - Other mcc (current) drug therapy - Personal history of nicotine dependence - Allergy status to sulfonamides status - Menopausal and female climacteric states 10/30/2018 14:[address] [facility] [place] TYPE: Emergency COMPLAINT: - WEAKNESS DIAGNOSES: - Allergy status to analgesic agent status - Other mcc (current) drug therapy - Chronic obstructive pulmonary disease w (acute) exacerbation - Personal history of nicotine dependence - Weakness - Hypokalemia - Allergy status to sulfonamides status INPATIENT VISIT TRACKING (12 MO.) No inpatient visits to display in this time frame [email or web address]
--- NOTE | 2019-03-01 19:19 | EKG ---
[facility] [address] [place] [address] Signed Sinus tachycardia Right atrial enlargement Possible Lateral infarct , age undetermined Possible Inferior infarct , age undetermined Abnormal ECG When compared with ECG of 30-OCT-2018 16:10, Vent. rate has increased BY 41 BPM Borderline criteria for Lateral infarct are now present Confirmed by ILDA CAMACHO MD ([id number]) on 03/01/2019 7:19:43 PM Electronically Signed By: ILDA CAMACHO MD 03/01/19 1919 PATIENT NAME: GORDO ROLLINS Electrocardiogram DATE OF : 54 PHYSICIAN: ILDA CAMACHO MD REPORT #: [id number] REPORT IS CONFIDENTIAL AND NOT TO BE RELEASED WITHOUT AUTHORIZATION
--- NOTE | 2019-03-01 20:35 | NUR ---
PT ARRIVED FROM THE ED VIA STRETCHER. SHE IS ON 3 LNC AND IS ALERT AND ORIENTED. SHE WAS ABLE TO TRANSFER HERSELF OVER TO THE BED ON HER OWN. HER DAUGHTER IS IN THE ROOM WITH HER AT THIS TIME. BUSTER KEVEN IS GETTING HER VS AND ASSITING THE PT TO GET ORIENTED TO THE ROOM.
--- NOTE | 2019-03-01 21:25 | NUR ---
COMPLETED ADMISSION HX WITH PT. SHE HAS ALOT OF STORIES TO TELL ABOUT HER LIFE AND THE CARE SHE IS RECEIVING AT HOME. IT IS DIFFICULT TO TELL AT THIS POINT IF SHE IS A POOR HISTORIAN. PT REPORTS NO SHOWERS SINCE HAVING HER DAUGHTER CARE FOR HER BUT STATES THAT HER CAT LICKS HER TO KEEP HER CLEAN. HER HAIR APPEARS CLEAN AND NONGREASY. Horace HAS ARRIVED TO THE ROOM AND IS GOING TO GIVE HER A NEB TRT AT THIS TIME. CALL LIGHT IS CLOSE.
--- NOTE | 2019-03-01 22:42 | NUR ---
Pt has been cooperative since admission, received a neb tx and states she is breathing better, very talkatative, no sb noted, chronic O2 at 3LNC inplace, exp wheezing at bases auscultated. Melatonin 5mg po given as scheduled per ioncomnia. IVf infusing w/o problems.CM referral done as pt is afraid of going home as per varbatim "They leve me alone in the house, they withhold food from me, they scream at me, they dont do what they are suppossed to do for me, the house is filthy'. Anxious when talking, easily redirectable. Call light at bedside, bed alarm on as precaution, Pt alert and oriented, follows instructions well
--- NOTE | 2019-03-01 23:18 | NUR ---
resting, eyes closed, on O2 #L NC Chronic use, no resp distress, fluids and call light at hands reach.
--- NOTE | 2019-03-02 02:36 | NUR ---
VITALS AND I&OS DONE AND CHARTED. WITH THE HELP OF OBDULIA ROLLINS WE HELPED PT TO THE BATHROOM AND BACK TO BED WITH HER FWW. BEDSIDE TABLE AND CALL LIGHT IN REACH. PT NEEDS NOTHING MORE AT THIS TIME. FRESH WATER GIVEN.
--- NOTE | 2019-03-02 02:41 | NUR ---
Up to brp. voided, back to bed, tolerated well, no sob noted, O2 3L nc in place, Neb tx given on request
--- NOTE | 2019-03-02 04:40 | NUR ---
Resting, no resp distress, chronic O2 use 3L NC, no distress, IVF infusing, w/o problems
--- NOTE | 2019-03-02 06:14 | NUR ---
Pt on chronic O2 3LNC, gets nebs, lungs w exp wheezing bilat, gets Solumedrol IV, Tolerating diet well, IVF infusing. Medicated with Tylenol 650mg po c/o h/a. Up to br with 1PA/FWW tolerated well. In bed, turns self, call light at bedside.
--- NOTE | 2019-03-02 06:46 | NUR ---
VITALS AND I&OS DONE AND CHARTED. BEDSIDE TABLE AND CALL LIGHT IN REACH. PT NEEDS NOTHING MORE AT THIS TIME.
--- NOTE | 2019-03-02 07:15 | NUR ---
Report received, orders acknowledged.
--- NOTE | 2019-03-02 07:50 | NUR ---
Patient sitting up in bed with 1/2NS running at 125 mls/hr. AM medications given, assessment complete. Breakfast delivered. Bed alarm in place, denies further needs at this time. Call light within reach.
--- NOTE | 2019-03-02 08:30 | NUR ---
Cm assessment completed. Pt has many c/o about daughter and family who she resides with. States her walker is broken, the brakes need to be replaced and she is saving the $40.00 for repair, c/o some living in the home who uses Dabs, c/o house being filthy. She states she has Megan Alvarez from [facility] who sees her. She lives in a trailer with 4 steps, states she is unable to get into the house without assistance. Let her know, I will call Megan from [facility] and see if there is any changes she would like to make.
[2019-03-02] MEDS ORDERED: OSELTAMIVIR PHO75 MG PO (09:28)
[2019-03-02] MEDS ORDERED: FLUTICASONE PRO16 GM NAS (09:29)
[2019-03-02] MEDS ORDERED: KLOR-CON20 MEQ PO (09:29)
[2019-03-02] MEDS ORDERED: LOSARTAN POTASS50 MG PO (09:31)
[2019-03-02] MEDS ORDERED: HYDROCHLOROTH12.5 MG PO (09:34)
--- NOTE | 2019-03-02 09:40 | NUR ---
Attempted to call Megan from [facility]. She is gone until the . Spoke with Puja, she review notes and spoke with another worker. Stated pt. as benefits for placement to [facility] if needed. They stated the worker of the day could see pt, but there really isn't any issues. I declined. Will offer pt to go to an [facility] and if she agrees will room worker of the day for placement.
[2019-03-02] MEDS ORDERED: ANORO ELLIPTA1 EACH INH (09:58)
--- NOTE | 2019-03-02 12:29 | NUR ---
In and updated pt. Megan is out of office until next week. She has benefits for placement to [facility] or [facility]. She declines and states she will just go home when discharged. Helping hands brochure given with paid caregivers for a resource for house keeping.
--- NOTE | 2019-03-02 12:36 | NUR ---
Dr. Finley in room to discuss POC with patient
[2019-03-02] MEDS ORDERED: LEVOFLOXACIN750 MG PO (12:37)
[2019-03-02] MEDS ORDERED: IPRAT-ALBUT 0.5-3 ML INH (12:40)
[2019-03-02] MEDS ORDERED: VITAMIN D32000 UNI1 PO (12:58)
[2019-03-02] MEDS ORDERED: IRON325 M1 PO (12:58)
[2019-03-02] MEDS ORDERED: VITAMIN B-121000 MCG PO (13:00)
--- NOTE | 2019-03-02 13:00 | NUR ---
MED REC COMPLETE
--- NOTE | 2019-03-02 14:20 | NUR ---
PATIENT CAME IN VERY HUNGRY LAST NIGHT. SHE SAID SHE ATE A BIG BREAKFAST THIS MORNING SO SHE ONLY WANTS MASHED POTATOES FOR LUNCH. SHE LIVES WITH HER DAUGHTER IS WHAT SOUNDS LIKE A VERY DIRTY 5TH WHEEL. PATIENT WILL NOT USE THE STOVE BECAUSE IT IS DIRTLY. HER DAUGHTER MAY BUY HER A CUP OF NOODLES, WHICH IS EASY FOR THE PATIENT TO PREPARE. OTHERWISE THE PATIENT EATS INSTANT OATMEAL FOR BREAKFAST AND HAS LIMITED FOOD AVAILABLE TO HER. SHE USED TO WEIGH 135 LBS ABOUT 1 YEAR AGO. SHE HAS LOST 16 LBS IN ABOUT 1 YEAR. SHE LIKES STRAWBERRY ENSURE. ONLY HAS A FEW TEETH ON THE BOTTOM. SOUNDS LIKE SHE HAS DENTURES READY FOR HER BUT COULDN'T GET THERE TO PICK THEM UP. I LET HER KNOW WE HAVE STRAWBERRY ENSURE HERE. AT THIS POINT, CONTINUE HER ON A REGULAR DIET WHERE SHE WILL RECEIVE 3 MEALS AND SNACKS IF DESIRED. WILL CONTINUE TO MONITOR.
--- NOTE | 2019-03-02 14:40 | NUR ---
Discharge instructions given, all questions and concerns answered. Patient verbalized understanding of follow up appointment. Vital signs taken, IV D/C'd. All personal belongings collected. Patient leaves unit via wheelchair with daughter and nursing staff.
== END 2019-03-02 14:40 | disposition home or self-care (01) ==
LOC: ED 17:15 → MS 17:18
PROVIDERS: ADMIT Internal Medicine
DX: R05 Cough (principal); J32.9 Chronic sinusitis, unspecified; J44.9 Chronic obstructive pulmonary disease, unspecified; Z99.81 Dependence on supplemental oxygen; Z87.820 Personal history of traumatic brain injury; Z87.891 Personal history of nicotine dependence; Z79.899 Other long term (current) drug therapy; Z79.51 Long term (current) use of inhaled steroids; Z88.2 Allergy status to sulfonamides; Z88.8 Allergy status to other drugs, medicaments and biological substances; Z20.828 Contact with and (suspected) exposure to other viral communicable diseases
CPT/HCPCS: 36415; 71045; 80048; 80053; 83735; 83880; 84484; 85025; 87502; 93005; 93010; 94640; 94760; 96374; 96376; 99285-25; G0378; J2920; J2930; J7030

== ENCOUNTER 2019-10-07 01:30 | Emergency (ER) | payer MEDICARE, OTHER ==
[~2019-10-07] VITALS: Ht 170.2 cm; Wt 51.7 kg
[~2019-10-07 01:30] MED LIST changes: +ANORO ELLIPTA1 EACH INH; +FLUTICASONE PRO16 GM NAS; +HYDROCHLOROTH12.5 MG PO; +IRON325 M1 PO; +KLOR-CON20 MEQ PO; +LEVOFLOXACIN750 MG PO; +LOSARTAN POTASS50 MG PO; +OSELTAMIVIR PHO75 MG PO; +VITAMIN B-121000 MCG PO; +VITAMIN D32000 UNI1 PO
--- OUTSIDE RECORDS SUMMARY | 2019-10-07 01:32 | XMS ---
PreManage Notification: GORDO ROLLINS Security Truck Driver'S Offsider Events No recent Security Events currently on file CRITERIA MET - Group Notification - [facility] - Has [facility] Guidelines - History of Sepsis Dx CARE PROVIDERS SAUL HARDY Family Medicine 01/31/2018-Current PHONE: [phone] ALIX OLSEN Health Educator 09/14/2018-Current PHONE: [phone] HUNTER HEREDIA Physician Oracle Ebs Architect 11/09/2017-Current PHONE: [phone] JOYCE MAHONEY Internal Medicine 12/21/2017-Current PHONE: [phone] JORGE DICK Family [facility] 10/31/2018-Current PHONE: [phone] Anali Alvarez Electronic Bench Technician/Infusion Nurse 10/05/2018-Current PHONE: [phone] JOHN LONGORIA Internal Medicine 03/02/2019-Current PHONE: [phone] Kathy has no Care Guidelines for this patient. Care History Medical/Surgical 03/02/2019 [facility] Patient was admitted; currently established with Dr. Longoria.\T\[facility]; No follow up appointment made yet. 02/22/2018 [facility] - PATIENT HAS NOW ESTABLISHED CARE WITH DR DICK- - Patient is currently established with [facility]. If patient is seen in the ED during business hours. Please contact CHWs at [facility]. - Care Recommendation: This patient has had 5 or more Emergency Department visits in the last 12 months.\T\nbsp; Patient requires education on the scope and purpose of the ED as an acute care provider not a Primary Care Provider and should not be utilized for chronic conditions.\T\nbsp; These are guidelines and the provider should exercise clinical judgment when providing care. 01/31/2018 [facility] - PATIENT HAS STATED SHE SEES DR HARDY IN [place] HER PCP- PATIENT HAS ONLY BEEN SEEN ONCE BY DR HARDY OFFICE ON 12/28/17 AND DOES NOT HAVE ANY FUTURE APTS. - PATIENT DAUGHTER THERESA IS PATIENT CAREGIVER- PATIENT DAUGHTER HAS DECLINED SERVICES FOR HER MOM TO ATTEND THE PULMONARY REHAB PROGRAM. - CHW WILL CONTACT LESLYE DockeryRESPIRATORY AT [facility] TO SEE IF PATIENT CAN RECEIVE RESPIRATORY SERVICES IN THE HOME IF POSSIBLE. E.D. VISIT COUNT (12 MO.) 4 [facility] TOTAL 4 NOTE: Visits indicate total known visits. ED/UCC VISIT TRACKING (12 MO.) 10/07/2019 01:30 [facility] [place] TYPE: Emergency COMPLAINT: - SOB 03/01/2019 17:17 [facility] [place] TYPE: Emergency COMPLAINT: - POSSIBLE PNEUMONIA 11/06/2018 21:05 [facility] [place] TYPE: Emergency COMPLAINT: - HOT FLASHES DIAGNOSES: - Allergy status to analgesic agent status - Chronic obstructive pulmonary disease, unspecified - Menopausal and female climacteric states - Other retirement (current) drug therapy - Personal history of nicotine dependence - Allergy status to sulfonamides status - Menopausal and female climacteric states 10/30/2018 14:26 [facility] [place] TYPE: Emergency COMPLAINT: - WEAKNESS DIAGNOSES: - Allergy status to analgesic agent status - Other terminologist (current) drug therapy - Chronic obstructive pulmonary disease with (acute) exacerbati - Personal history of nicotine dependence - Weakness - Hypokalemia - Allergy status to sulfonamides status INPATIENT VISIT TRACKING (12 MO.) 03/01/2019 17:18 [facility] [place] TYPE: Observation COMPLAINT: - COPD EXACERBATION DIAGNOSES: - Dependence on supplemental oxygen - adjunct faculty for medical terminology (current) use of inhaled steroids - Chronic sinusitis, unspecified - Personal history of nicotine dependence - Contact with and (suspected) exposure to other viral communic - Chronic obstructive pulmonary disease, unspecified - Personal history of traumatic brain injury - Allergy status to sulfonamides status - Allergy status to other drugs, medicaments and biological sub - Cough - Other terminologist (current) drug therapy [id number]
[2019-10-07] MEDS ORDERED: IPRAT-ALBUT 0.5-3 ML INH (05:49)
[2019-10-07] MEDS ORDERED: PREDNISONE20 MG PO (05:49)
--- NOTE | 2019-10-07 14:14 | EKG ---
[facility] [address] [place], [place] [address] Signed Sinus rhythm with short [place] Anterolateral infarct , age undetermined Abnormal ECG When compared with ECG of 07-OCT-2019 01:44, (Unconfirmed) No significant change was found Confirmed by CHEKO FAUSTIN DO ([id number]) on 10/07/2019 2:14:12 PM Electronically Signed By: CHEKO FAUSTIN DO 10/07/19 1414 PATIENT NAME: GORDO ROLLINS Electrocardiogram DATE OF : 54 PHYSICIAN: CHEKO FAUSTIN DO REPORT #: [id number] REPORT IS CONFIDENTIAL AND NOT TO BE RELEASED WITHOUT AUTHORIZATION
== END 2019-10-07 06:16 | disposition home or self-care (01) ==
LOC: ED 01:30
DX: J44.1 Chronic obstructive pulmonary disease with (acute) exacerbation (principal); Z87.891 Personal history of nicotine dependence; Z88.2 Allergy status to sulfonamides; Z88.6 Allergy status to analgesic agent; Z79.899 Other long term (current) drug therapy
CPT/HCPCS: 71045; 80053; 83735; 83880; 84484; 85025; 93005; 93010; 94640; 94644; 96361; 96374; 99285-25; J2930; J7030

== ENCOUNTER 2020-04-02 17:35 | Observation (INO) | payer MEDICARE, OTHER ==
[~2020-04-02] VITALS: Ht 170.2 cm; Wt 50.7 kg
[~2020-04-02 17:35] MED LIST changes: +APETEX LIQ790 MG/15 PO; +IRON CHEWS15 MG PO; -IRON325 M1 PO; -MELATONIN1 MG PO; +MELATONIN2.5 MG PO; -VITAMIN B-121000 MCG PO
--- OUTSIDE RECORDS SUMMARY | 2020-04-02 17:38 | XMS ---
PreManage Notification: GORDO ROLLINS Security Financial Reporting Analyst Events No recent Security Events currently on file CRITERIA MET - Group Notification - [facility] - Has [facility] Guidelines - History of Sepsis Dx CARE PROVIDERS SAUL HARDY Family Medicine 01/31/2018-Current PHONE: [phone] ALIX OLSEN Health Educator 09/14/2018-Current PHONE: [phone] HUNTER HEREDIA Physician Director Communications 11/09/2017-Current PHONE: [phone] JOYCE MAHONEY Internal Medicine 12/21/2017-Current PHONE: [phone] JORGE DICK [facility] 10/31/2018-Current PHONE: [phone] Anali Alvarez Head Up Operator/Mechanical Shop Laborer 10/05/2018-Current PHONE: [phone] [facility] 03/02/2019-Current PHONE: [phone] Kathy has no Care Guidelines for this patient. Care History Medical/Surgical 10/08/2019 [facility] Patient seen after clinic hours for short of breath.\T\nbsp; ER treatment for COPD sufficed.\T\nbsp; N 03/02/2019 [facility] Patient was admitted; currently established with Dr. Longoria.\T\nbsp; No follow up appointment made yet. 02/22/2018 [facility] - PATIENT HAS NOW ESTABLISHED CARE WITH DR DICK- - Patient is currently established with [facility]. If patient is seen in the ED during business hours. Please contact CHWs at [facility]. - Care Recommendation: This patient has had 5 or more Emergency Department visits in the last 12 months.\T\nbsp; Patient requires education on the scope and purpose of the ED as an acute care provider not a Primary Care Provider and should not be utilized for chronic conditions.\T\nbsp; These are guidelines and the provider should exercise clinical judgment when providing care. E.D. VISIT COUNT (12 MO.) [address] [facility] TOTAL 2 NOTE: Visits indicate total known visits. ED/UCC VISIT TRACKING (12 MO.) 04/02/2020 17:36 [facility] [place] TYPE: Emergency COMPLAINT: - DIZZINESS, LIGHT HEADED 10/07/2019 01:30 [facility] [place] TYPE: Emergency COMPLAINT: - SOB DIAGNOSES: - Other long distance operator (current) drug therapy - Personal history of nicotine dependence - Allergy status to sulfonamides - Chronic obstructive pulmonary disease with (acute) exacerbation - Shortness of breath - Allergy status to analgesic agent INPATIENT VISIT TRACKING (12 MO.) No inpatient visits to display in this time frame [email or web address]
--- NOTE | 2020-04-02 23:20 | NUR ---
PT ARRIVED TO THE [facility] AT 2237 VIA STRETCHER. SHE WAS ABLE TO SCOOT HERSELF OVER TO THE BED FROM THE STRETCHER. SHE IS ON 3L OM AND CONTINUOUS CPOX IS SET UP. PLACED PT ON TELE # 9 AND SHE IS IN SINUS TACH 100-110. PT REFUSED BP ON THE MONITOR BECAUSE "IT SQUEEZES TO TIGHT" MANUAL BP TAKEN AND ENTERED. BED WEIGHT WAS OFF, OBTAINED PT'S WEIGHT FROM ER CHARTING. PT STATES SHE IS ON O2 CHRONIC 3-4L AT HOME. PT HAS WATER AT BEDSIDE AND CRACKERS. CALL LIGHT IS CLOSE AND PT DENIES FURTHER NEEDS.
--- NOTE | 2020-04-03 00:37 | NUR ---
PATIENT WANTING A NEB TREATMENT. RT CALLED AND WILL BE HERE SHORTLY. CALL LIGHT IS IN REACH.
--- NOTE | 2020-04-03 02:19 | NUR ---
PATIENT RESTING QUIETLY, PULSE=67 ON TELE, PULSE AN=571% ON 3L/NC, PATIENT HAS NO CURRENT NEEDS, CALL LIGHT IS IN REACH.
--- NOTE | 2020-04-03 03:07 | NUR ---
PATIENT TRYING TO GO BACK TO SLEEP AFTER ASSESSMENT, PATIENT HAS NO NEEDS AT THIS TIME, REMAINS ON 3L/NC ON CONTINUOUS PULSE OX.CALL LIGHT IN REACH.
--- NOTE | 2020-04-03 05:30 | NUR ---
PATIENT HAS REMAINED IN THE HIGH 90'S TO 100% SAT ON PULSE OX THROUGH THE NIGHT REMAINING ON 3L/NC OR 3L/OXY MASK. PATIENT'S BLOOD PRESSURE AND PULSE CAME DOWN TO NORMAL LIMITS AFTER HER PM IV MEDICATION. PATIENT HAS SLEPT PRETTY WELL EXCEPT WHEN NEEDING TO USE THE COMMODE, WHICH SHE IS A 1PA PIVOT FOR. PATIENT SAY SHE IS FEELING MUCH BETTER THIS MORNING.
[2020-04-03] MEDS ORDERED: HYDROXYZINE HCL25 MG PO (07:07)
[2020-04-03] MEDS ORDERED: MONTELUKAST SOD10 MG PO (07:09)
--- NOTE | 2020-04-03 09:06 | NUR ---
MORNING ASSESMENT DONE. MORNING MEDS WERE ADMINISTERED. PATIENTS ON 3L NC PATIENT ENDORSED 3L USE AT HOME. PATIENT DENIES ANY OTHER NEEDS AT THIS TIME.
[2020-04-03] MEDS ORDERED: NASAL SPRAY88 ML NAS (09:08)
[2020-04-03] MEDS ORDERED: ALEVE220 MG PO (09:08)
--- NOTE | 2020-04-03 09:09 | NUR ---
MED REC COMPLETE
--- NOTE | 2020-04-03 09:15 | NUR ---
Pt lives in a 5th wheel trailer with her 7 cats. She states her daughter is her state paid cg and she needs assist in all areas. She is not sure how many hours her daughter is paid. She would like her daughter to make her meals, clean house, do her laundy, and transport her. She states he 10 yo granddaughter has been assisting her lately. Pt is upset with her daughter as she feels she does not provide the care needed. We discussed it could be she is only allotted so many talha rs per week. Pt is on 02 4-6 L at home. She states she has become increasingly weak. She is unable to care for self at all. She eats TV dinners and canned tamales. We discussed this is not the best shannon for a pt with copd. I will call Megan from [facility] and see if pt has more hours available and could possible have another cg. Called and ;eft a message for Megan at [facility]. Disclussed placement to SNF for short term to increase strength, pt declined as she doesn't want to leave her cats. She also declined [facility].
--- NOTE | 2020-04-03 09:39 | NUR ---
DR. FAUSTIN IN TO SEE PATIENT. SAMPLE CONTAINER PLACED ON TABLE TO CATCH SPUTUM SAMPLE.
--- NOTE | 2020-04-03 11:30 | NUR ---
RETURNED CALL TO PATIENT'S DAUGHTER FOR UPDATES. PATIENT UPDATED. PATIENT IS VISITING WITH DIETARY.
--- NOTE | 2020-04-03 12:14 | NUR ---
SPUTUM SAMPLE SENT TO LAB.
--- NOTE | 2020-04-03 13:44 | NUR ---
DUE TO AGP, I AM UNABLE TO VISIT PT AT THIS TIME. WILL CHECK BACK
--- NOTE | 2020-04-03 14:01 | NUR ---
PATIENT GIVEN 1400 MEDICATIONS, FOCUSED RESPIRATORY ASSESSMENT DONE. PATIENT'S COUGH IS MORE PRODUCTIVE THE DAY GOES ON. CONTINUES DIM IN BASES, RIGHT MORE THAN LEFT. O2 SATS ARE 96% ON CHRONIC 3L.
--- NOTE | 2020-04-03 15:21 | EKG ---
[facility] [address] [place] [address] Signed Normal sinus rhythm Abnormal ECG When compared with ECG of 07-OCT-2019 01:44, Criteria for Anterior infarct are no longer present Criteria for Anterolateral infarct are no longer present Confirmed by CHEKO FAUSTIN DO ([id number]) on 04/03/2020 3:21:38 PM Electronically Signed By: CHEKO FAUSTIN DO 04/03/20 1521 PATIENT NAME: GORDO ROLLINS Electrocardiogram DATE OF : 54 PHYSICIAN: CHEKO FAUSTIN DO REPORT #: [id number] REPORT IS CONFIDENTIAL AND NOT TO BE RELEASED WITHOUT AUTHORIZATION
--- NOTE | 2020-04-03 16:32 | NUR ---
PATIENT GIVEN ORAL ZOFRAN FOR STOMACH PAIN/UPSET. PATIENT IS SITTING UP IN BED, HAS HAD RECENT SPONGE BATH, DENIES OTHER NEEDS.
--- NOTE | 2020-04-03 18:00 | NUR ---
PATIENT SELF ABULATED TO IN ROOM COMMODE PLACE NEXT TO BED. PATIENT VOIDED 200 MLS OF LIGHT YELLOW CLEAR URINE. PATIENT REPORTS NO OTHER NEEDS AT THIS TIME.
--- NOTE | 2020-04-03 18:11 | NUR ---
PATIENT GIVEN LIQUID ANTACID FOR STOMACH UPSET.
--- NOTE | 2020-04-03 21:50 | NUR ---
PT ON O2 3LNC, MOIST PRODUCTIVE COUGH PRESENT, LUNGS DIM AT BASES, NO SOB WHEN UP TO BR, BACK TO BED. HYPERVERBAL, COOPERATIVE, SL PATENT. NO C/O PAIN
--- NOTE | 2020-04-03 22:12 | NUR ---
PT'S IV WAS COMPLETE. IV IS NOW SL. PT STATES SHE WOULD LIKE A SLEEPING PILL. WILL TALK WITH PRIMARY RN RIA. CALL LIGHT IS CLOSE.
--- NOTE | 2020-04-03 22:29 | NUR ---
AWAKE, O2 3L NC, MOIST PROD. COUGH PRESENT, TURNS SELF IN BED, C/O INSOMNIA, MEDICATED WITH MELATONIN 6MG PO
--- NOTE | 2020-04-04 04:41 | NUR ---
resting, O2 3LNC, no distress, eyes closed, call light and fluids at bedside
--- NOTE | 2020-04-04 05:33 | NUR ---
Pt has slept this shift, received Melatonin, effective. On 3LNC, lungs dim at bases specially R, moist productive cough present. Received neb tx, Up to br, with 1pa tolerating well, no sob noted. Received IV solumedrol and IV and po abx. tolerated well. SL patent. Pleasant and hyperverbal. on Earosolized precautions due to neb tx
--- NOTE | 2020-04-04 06:05 | NUR ---
UP TO BR, VOIDED QS. SLIGHT SOB ON RETURN, O2 3LNC IN PLACE, COOP WTIH BLOOD DRAW, TOLERATING FLUIDS WELL, NO C/O PAIN. TALKATIVE, PLEASANT AND COOP.
--- NOTE | 2020-04-04 09:22 | NUR ---
IN TO GIVE PT MORNING MEDICATIONS AND COMPLETE ASSESSMENT. PT INDEPENDENT IN ROOM. REPORTS SHE HAD 2 UNMEASURED VOIDS, HAT WAS NOT IN TOILET AT TIME OF VOID. EATING AND DRINKING MODERATELY WELL. VSS. TITRATED O2 DOWN TO 2 L PT WAS AT 98% ON 3 L NC. LUNG SOUNDS ARE CLEAR, THOUGH DIMINISHED IN THE BASES. PT DENIES PAIN OR NAUSEA AND HAS NO OTHER NEEDS AT THIS TIME. CALL LIGHT IN REACH. DR FAUSTIN HAS ENTERED TO SEE PT.
[2020-04-04] MEDS ORDERED: MONTELUKAST SOD10 MG PO (09:23)
[2020-04-04] MEDS ORDERED: PREDNISONE20 MG PO (09:28)
[2020-04-04] MEDS ORDERED: LEVOFLOXACIN750 MG PO (09:29)
[2020-04-04] MEDS ORDERED: AIRDUO DIGIHAL1 EAC2 INH (09:38)
[2020-04-04] MEDS ORDERED: SPIRIVA RESPIMAT4 GM INH (09:40)
--- NOTE | 2020-04-04 11:17 | NUR ---
DC INSTRUCTIONS REVIEWED W/ PT AND DAUGHTER PRESENT. PT VSS. NO ACUTE CHANGES. PT PUT ON HOME O2 @ 3 L NC. WHEELED OUT WITH NURSING STAFF @ DAUGHTER AT 1105. NO QUESTIONS OR CONCERNS. PT STABLE AND AMBULATORY.
== END 2020-04-04 11:05 | disposition home or self-care (01) ==
LOC: ED 17:35 → MS 17:37
PROVIDERS: ADMIT Student in an Organized Health Care Education/Training Program; ATTEND Student in an Organized Health Care Education/Training Program
DX: J44.0 Chronic obstructive pulmonary disease with (acute) lower respiratory infection (principal); J18.9 Pneumonia, unspecified organism; J44.1 Chronic obstructive pulmonary disease with (acute) exacerbation; I10 Essential (primary) hypertension; K21.9 Gastro-esophageal reflux disease without esophagitis; J96.11 Chronic respiratory failure with hypoxia; Z79.899 Other long term (current) drug therapy; Z99.81 Dependence on supplemental oxygen; Z79.51 Long term (current) use of inhaled steroids; Z87.891 Personal history of nicotine dependence; Z88.6 Allergy status to analgesic agent; Z88.2 Allergy status to sulfonamides; Z20.822 Contact with and (suspected) exposure to COVID-19
CPT/HCPCS: 36415; 71045; 80048; 80053; 83605; 83735; 83880; 84484; 85025; 87502; 93005; 93010; 94640; 94762; 96365; 96372; 96375; 96376; 99285-25; C9803; G0378; J0456; J0696; J1650; J2930; J7060; U0003

== ENCOUNTER → 2022-03-02 | Emergency (ER) | payer MEDICARE, OTHER ==
[~2022-03-02] VITALS: Ht 170.2 cm; Wt 50.4 kg
[~2022-03-02] MED LIST changes: +AIRDUO DIGIHAL1 EAC2 INH; +ALEVE220 MG PO; +HYDROXYZINE HCL25 MG PO; +MONTELUKAST SOD10 MG PO; +NASAL SPRAY88 ML NAS; +SPIRIVA RESPIMAT4 GM INH
--- OUTSIDE RECORDS SUMMARY | 2022-03-02 07:00 | XMS ---
PreManage Notification: GORDO ROLLINS Security Americanization Teacher Events No recent Security Events currently on file CRITERIA MET - Group Notification CARE PROVIDERS SAUL HARDY [facility] 01/31/2018-Current PHONE: Unknown ALIX OLSEN Health Educator 09/14/2018-Current PHONE: [phone] HUNTER HEREDIA Physician General Handling Supervisor 11/09/2017-Current PHONE: [phone] JOYCE MAHONEY Internal Medicine 12/21/2017-Current PHONE: Unknown JORGE DICK [facility] 10/31/2018-Current PHONE: [phone] JOHN LONGORIA Internal Medicine 03/02/2019-Current PHONE: Unknown Kathy has no Care Guidelines for this patient. Care History Medical/Surgical 04/03/2020 [facility] Patient admitted for shortness of breath due to Pneumonia; Covid Negative.\T\ nbsp; 10/08/2019 [facility] Patient seen after clinic hours for short of breath.\T\nbsp; ER treatment for COPD sufficed.\T\nbsp; N 03/02/2019 [facility] Patient was admitted; currently established with Dr. Longoria.\T\nbsp; No follow up appointment made yet. E.D. VISIT COUNT (12 MO.) 1 [facility]. TOTAL 1 NOTE: Visits indicate total known visits. ED/UCC VISIT TRACKING (12 MO.) 03/02/2022 06:[address] [facility] [place] TYPE: Emergency COMPLAINT: - POSS STROKE INPATIENT VISIT TRACKING (12 MO.) No inpatient visits to display in this time frame [id number]
--- NOTE | 2022-03-02 20:46 | EKG ---
[facility] [address] [place] [address] Signed Sinus tachycardia Possible Lateral infarct , age undetermined Inferior infarct , age undetermined Abnormal ECG When compared with ECG of 02-APR-2020 17:54, Nonspecific T wave abnormality now evident in Inferior leads Nonspecific T wave abnormality now evident in Anterolateral leads QT has shortened Confirmed by ILDA CAMACHO MD ([id number]) on 03/02/2022 8:46:10 PM Electronically Signed By: ILDA CAMACHO MD 03/02/222045 PATIENT NAME: GORDO ROLLINS Electrocardiogram DATE OF : 54 PHYSICIAN: ILDA CAMACHO MD REPORT #: [id number] REPORT IS CONFIDENTIAL AND NOT TO BE RELEASED WITHOUT AUTHORIZATION
== END ==
LOC: ED 06:53
DX: I63.231 Cerebral infarction due to unspecified occlusion or stenosis of right carotid arteries (principal); G83.24 Monoplegia of upper limb affecting left nondominant side; J44.9 Chronic obstructive pulmonary disease, unspecified; R29.706 NIHSS score 6; Z87.891 Personal history of nicotine dependence; Z88.2 Allergy status to sulfonamides; Z88.6 Allergy status to analgesic agent; Z79.899 Other long term (current) drug therapy; Z20.822 Contact with and (suspected) exposure to COVID-19; Z87.820 Personal history of traumatic brain injury
CPT/HCPCS: 31500; 36415; 36600; 70450; 70496; 70498; 71045; 80053; 82803; 83880; 84484; 85025; 87502; 93005; 93010; 94002; 94640; 94660; 96365; 96367; 96375; 99285-25; C9803; J2704; J2930; J7030; Q9967; U0003